=== PATIENT | female | born 2000 | race African-American/Black ===

== ENCOUNTER 2024-01-22 08:00 | Outpatient (CLI) | payer OTHER ==
[2024-01-22 16:46] LABS: BILIRUBIN,URINE NEGATIVE (NEGATIVE); GLUCOSE, URINE (UA) NEGATIVE (NEGATIVE); KETONES,URINE (UA) NEGATIVE (NEGATIVE); LEUKOCYTE ESTERASE, URINE NEGATIVE (NEGATIVE); NITRITE,URINE NEGATIVE (NEGATIVE); OCCULT BLOOD,URINE NEGATIVE (NEGATIVE); PROTEIN,URINE NEGATIVE (NEGATIVE); UROBILINOGEN,URINE 0.2 (NORMAL) E.U./dL (NORMAL)
[2024-01-22 16:54] LABS: CLARITY,URINE CLEAR (CLEAR)
[2024-01-22 17:00] LABS: BACTERIA,URINE Few /HPF (None Seen); RBC,URINE 0-5 /HPF (0-5); SQUAMOUS EPITHELIAL CELL,UR MOD Squamous (<= Few)
== END 2024-01-22 23:59 | disposition home or self-care (01) ==
LOC: LAB.WC 08:00
PROVIDERS: ATTEND Obstetrics & Gynecology
DX: Z34.90 Encounter for supervision of normal pregnancy, unspecified, unspecified trimester (principal)
CPT/HCPCS: 81001; 87077; 87086; 87181

== ENCOUNTER 2024-02-02 07:48 | Outpatient (CLI) | payer OTHER ==
--- NOTE | 2024-02-02 17:28 | Ultrasound Report ---
PROCEDURE: OB 1st Trimester INDICATIONS: POSITIVE TEST OUTSIDE/PRIOR DATING DATA: Last menstrual period (LMP): 11/09/2023. LMP-based estimated date of delivery (MAR): 08/15/2024. First dating scan (date and location): 02/02/2024. Estimated date of delivery (MAR) from first dating scan: 08/26/2024. TECHNIQUE: Real-time scanning was performed of the fetus and maternal pelvic organs, with image documentation. COMPARISON: None. FINDINGS: Intrauterine gestational sac present. Embryo: Temperance-rump length measures 3.74 cm corresponding to 10 weeks 4 days Heart rate: 171 bpm. Other: No perigestational fluid collection. Measurement variability in dating: +/- 4 weeks by LMP, +/- 7 days by mean sac diameter (use before 6 weeks gestation if crown-rump length not able to be measured), +/- 5 days by crown-rump length (6-12 weeks gestation). Maternal organs: Ovaries demonstrate a left corpus luteal cyst IMPRESSION: Single live intrauterine with gestational age 10 weeks 4 days. Recommend follow-up imaging at 20-22 weeks for dates and anatomy. Reviewed by: Zuleima Carter MD on 02/02/2024 5:27 PM PDT Approved by: Zuleima Carter MD on 02/02/2024 5:27 PM PDT Station ID: [id number]
== END 2024-02-02 07:49 | disposition home or self-care (01) ==
LOC: DI 07:48
PROVIDERS: ATTEND Obstetrics & Gynecology
DX: Z34.91 Encounter for supervision of normal pregnancy, unspecified, first trimester (principal)

== ENCOUNTER 2024-02-14 18:00 | Emergency (ER) | payer OTHER ==
[2024-02-14 18:15] VITALS: O2SAT 100
[2024-02-14 19:01] LABS: BASOPHILS % (AUTO) 0.1 %; HCT - HEMATOCRIT 34.9 % (37.0-47.0); HGB - HEMOGLOBIN 11.6 g/dL (12.0-16.0); LYMPHOCYTES # (AUTO) 1.6 10^3/uL (1.5-3.5); LYMPHOCYTES % (AUTO) 17.2 %; MEAN CORPUSCULAR HEMOGLOBIN 29.3 pg (27.0-31.0); MEAN CORPUSCULAR HGB CONC 33.2 g/dL (32.0-36.0); MEAN CORPUSCULAR VOLUME 88.1 fL (81.0-99.0); MEAN PLATELET VOLUME 9.4 fL (7.9-10.8); MONOCYTES # (AUTO) 0.5 10^3/uL (0.0-1.0); MONOCYTES % (AUTO) 5.6 %; NEUTROPHILS % (AUTO) 76.9 %; PLT - PLATELET COUNT 242 10^3/uL (130-450); RED BLOOD COUNT 3.96 10^6/uL (4.20-5.40); WHITE BLOOD COUNT 9.1 x10^3/uL (4.8-10.8)
--- NOTE | 2024-02-14 19:07 | ED Physician Documentation ---
History of Present Illness - Stated complaint Stated Complaint: ESCAMILLA - Chief complaint Chief Complaint: Neuro - History obtained from History obtained from: Patient - History of Present Illness Timing: How many days ago (3) Pain level max: 7 Pain level now: 6 - Additonal information Additional information: Is a 23-year-old female who presents to the emergency department complaining of a headache, generalized. Gradual onset over the past 3 days. Has a history of similar. Took Tylenol this morning without relief. Worse with light and sound, nothing makes it better. No rhinorrhea, cough or congestion. No vomiting. She states she is 14 weeks . No vaginal bleeding or discharge. No abdominal pain. No fevers.No falls. No trauma. Review of Systems Constitutional: denies: Fever, Chills GI: denies: Nausea, Vomiting, Diarrhea Skin: denies: Rash Musculoskeletal: denies: Neck pain, Back pain PD PAST MEDICAL HISTORY - Past Medical History Past Medical History: No Cardiovascular: None Respiratory: None Neuro: None Endocrine/Autoimmune: None GI: None VASCULAR TECH: None : None HEENT: None Psych: None Musculoskeletal: None Derm: None - Past Surgical History Past Surgical History: No - Present Medications Home Medications: Ambulatory Orders Medication Instructions Recorded Confirmed Nitrofurantoin [Macrobid] 100 mg PO BID #10 cap 02/14/24 - Allergies Allergies/Adverse Reactions: Allergies Allergy/AdvReac Type Severity Reaction Status Date / Time No Known Drug Allergies Allergy Verified 02/14/24 18:02 - Social History Does the pt smoke?: No Smoking Status: Never smoker Does the pt drink ETOH?: No Does the pt have substance abuse?: No - Immunizations Immunizations are current?: Yes - POLST Patient has POLST: No PD ED PE NORMAL - Vitals Vital signs reviewed: Yes - General General: Alert and oriented X 3, No acute distress - HEENT HEENT: Atraumatic, PERRL, EOMI, Ears normal, Moist mucous membranes, Pharynx benign - Neck Neck: Supple, no meningeal sign, No bony TTP - Cardiac Cardiac: RRR, Strong equal pulses - Respiratory Respiratory: No respiratory distress, Clear bilaterally - Abdomen Abdomen: Soft, Non tender, Non distended - Back Back: No spinal TTP - Derm Derm: Warm and dry - Extremities Extremities: No edema - Neuro Neuro: Alert and oriented X 3, retoucher photoengraving 2-12 intact, No motor deficit, No sensory deficit, Normal speech Eye Opening: Spontaneous Motor: Obeys Commands Verbal: Oriented GCS Score: 15 - Psych Psych: Normal mood, Normal affect Results - Vitals Vitals: Vital Signs - 24 hr 02/14/24 02/14/24 18:02 21:08 Temperature 36.8 C 36.8 C Heart Rate 76 70 Respiratory 16 16 Rate Blood Pressure 137/75 H 130/72 O2 Saturation 100 100 - Labs Labs: Laboratory Tests 02/14/24 02/14/24 02/14/24 18:52 18:52 19:04 WBC 9.1 RBC 3.96 L Hgb 11.6 L Hct 34.9 L MCV 88.1 MCH 29.3 MCHC 33.2 RDW 13.0 Plt Count 242 MPV 9.4 Neut # (Auto) 7.0 H Lymph # (Auto) 1.6 [place] # (Auto) 0.5 Eos # (Auto) 0.0 Baso # (Auto) 0.0 Absolute Nucleated RBC 0.00 Nucleated RBC % 0.0 Sodium 136 Potassium 3.3 L Chloride 106 Carbon Dioxide 23 Anion Gap 7.0 BUN 8 Creatinine 0.5 L Estimated GFR (MDRD) 185 Glucose 82 Calcium 9.3 Total Bilirubin 0.3 AST 12 ALT 8 L Alkaline Phosphatase 39 L Total Protein 6.2 L Albumin 4.1 Globulin 2.1 Albumin/Globulin Ratio 2.0 Urine Color YELLOW Urine Clarity HAZY Urine pH 6.0 Ur Specific [place] 1.020 Urine Protein NEGATIVE Urine Glucose (UA) NEGATIVE Urine Ketones 15 H Urine Occult Blood NEGATIVE Urine Nitrite NEGATIVE Urine Bilirubin NEGATIVE Urine Urobilinogen 0.2 (NORMAL) Ur Leukocyte Esterase MODERATE H Urine RBC 0-5 Urine WBC 6-10 H Ur Squamous Epith Cells FEW Squamous Urine Bacteria Rare Urine Mucus Few Strands Ur Microscopic Review INDICATED Urine Culture Comments INDICATED PD Medical Decision Making - ED course Complexity details: reviewed results, re-evaluated patient, considered differential, d/w patient ED course: 23-year-old female with her usual migraine headache. She was given a dose of Fioricet, she states that her headache felt "numb, but still felt throbbing". Therefore she was given a dose of Toradol as well. She states that that did improve the pain but was still complaining of throbbing. Therefore was given a small dose of morphine. This fully resolved her symptoms. The headache was not sudden in onset. Normal cerebellar testing. Normal gait. Similar to her usual migraine headache. No red flags. We will have her follow-up with her OB for further care. No focal neurological deficits. No proteinuria. Patient was also incidentally found to have a UTI. She is asymptomatic but given that she is , we will treat with Macrobid. Patient counseled regarding signs and symptoms for which I believe and urgent re-evaluation would be necessary. Patient with good understanding of and agreement to plan and is comfortable going home at this time This document was made in part using voice recognition software. While efforts are made to proofread this document, sound alike and grammatical errors may occur. Departure - Departure Disposition: Home, Self Care Clinical Impression: Migraine Qualifiers: Migraine type: unspecified Status migrainosus presence: without status migrainosus Intractability: not intractable Qualified Code(s): G43.909 - Migraine, unspecified, not intractable, without status migrainosus UTI (urinary tract infection) Qualifiers: Urinary tract infection type: acute cystitis Hematuria presence: without hematuria Qualified Code(s): N30.00 - Acute cystitis without hematuria Condition: Good Instructions: ED Headache Migraine, ED UTI Cystitis Female Follow-Up: your,doctor in 1 week [Other] Prescriptions: Nitrofurantoin [Macrobid] 100 mg PO BID #10 cap Comments: Take all antibiotics until gone. Please return if you worsen. Please follow-up with your OB for further care. Your laboratory testing does not show any acute abnormalities today. You have tested positive for urinary tract infection and as you are , we will treat this. It appears that you had a migraine h eadache today and were given Fioricet and Toradol. Your prescription was sent to [facility] in [place]. Forms: PCP List Discharge Date/Time: 02/14/24 21:08
[2024-02-14 19:12] LABS: BILIRUBIN,URINE NEGATIVE (NEGATIVE); GLUCOSE, URINE (UA) NEGATIVE (NEGATIVE); KETONES,URINE (UA) 15 mg/dL (NEGATIVE); LEUKOCYTE ESTERASE, URINE MODERATE (NEGATIVE); NITRITE,URINE NEGATIVE (NEGATIVE); OCCULT BLOOD,URINE NEGATIVE (NEGATIVE); PROTEIN,URINE NEGATIVE (NEGATIVE); UROBILINOGEN,URINE 0.2 (NORMAL) E.U./dL (NORMAL)
[2024-02-14 19:13] LABS: CLARITY,URINE HAZY (CLEAR)
[2024-02-14 19:18] LABS: ALBUMIN 4.1 g/dL (3.2-5.5); BILIRUBIN,TOTAL 0.3 mg/dL (0.2-1.0); CALCIUM 9.3 mg/dL (8.5-10.3); CREATININE 0.5 mg/dL (0.6-1.3); POTASSIUM 3.3 mmol/L (3.5-4.5); TOTAL PROTEIN 6.2 g/dL (6.4-8.9)
[2024-02-14] MEDS: BUTALB/ACETAM/CAFF 50/325/40MG TABLET PO STA (19:18)
[2024-02-14 19:23] LABS: BACTERIA,URINE Rare /HPF (None Seen); MUCUS,URINE Few Strands; RBC,URINE 0-5 /HPF (0-5); SQUAMOUS EPITHELIAL CELL,UR FEW Squamous (<= Few)
[2024-02-14] MEDS: NITROFURANTOIN MACRO 100 MG CAPSULE PO STA (19:48)
[2024-02-14] MEDS: KETOROLAC 30 MG/ML VIAL IM STA (20:00)
[2024-02-14] MEDS: MORPHINE 2 MG/ML CARPUJECT IM STA (20:37)
[2024-02-14 21:18] VITALS: BP 130/72
== END 2024-02-14 21:08 | disposition home or self-care (01) ==
LOC: ED 18:00
DX: O99.891 Other specified diseases and conditions complicating pregnancy (principal); G43.909 Migraine, unspecified, not intractable, without status migrainosus; O23.12 Infections of bladder in pregnancy, second trimester; Z3A.14 14 weeks gestation of pregnancy
CPT/HCPCS: 36415; 80053; 81001; 85025; 87086; 96372; 99283; 99284; A9270; 81003

== ENCOUNTER 2024-02-18 21:09 | Emergency (ER) | payer OTHER ==
--- NOTE | 2024-02-18 21:40 | ED Physician Documentation ---
PD HPI ABD PAIN - Stated complaint Stated Complaint: ABD PX - Chief complaint Chief Complaint: Abd Pain - History obtained from History obtained from: Patient - Additional information Additional information: G1, P0 female at approximately 14 weeks gestational age presents by private vehicle from home for 3 days of suprapubic abdominal pain. Patient states that she called the nursing triage line who referred her to the emergency department for evaluation. Patient states that pain is worse when she moves. Has confirmed IUP. Patient denies vaginal bleeding, loss of fluids, contractions. Did not call her CHLORINE OPERATOR for this complaint. No medications taken for this complaint prior to arrival Review of Systems Constitutional: denies: Fever, Chills GI: reports: Abdominal Pain. 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 : None HEENT: None Psych: None Musculoskeletal: None Derm: None - Past Surgical History Past Surgical History: No - Present Medications Home Medications: Ambulatory Orders Medication Instructions Recorded Confirmed Nitrofurantoin [Macrobid] 100 mg PO BID #10 cap 02/14/24 - Allergies Allergies/Adverse Reactions: Allergies Allergy/AdvReac Type Severity Reaction Status Date / Time No Known Drug Allergies Allergy Verified 02/18/24 21:12 - Social History Does the pt smoke?: No Smoking Status: Never smoker Does the pt drink ETOH?: No Does the pt have substance abuse?: No - Immunizations Immunizations are current?: Yes - POLST Patient has POLST: No PD ED PE NORMAL - Vitals Vital signs reviewed: Yes - General General: Alert and oriented X 3, No acute distress, Well developed/nourished - Cardiac Cardiac: RRR, Strong equal pulses - Respiratory Respiratory: No respiratory distress, Clear bilaterally - Abdomen Abdomen: Soft, Non distended, Other (Minimal suprapubic tenderness to deep palpation, no rebound or guarding) - Derm Derm: Normal color, Warm and dry, No rash - Extremities Extremities: No deformity, No tenderness to palpate, Normal ROM s pain - Neuro Neuro: Alert and oriented X 3, marine pipefitter 2-12 intact, No motor deficit, Normal speech Results - Vitals Vitals: Vital Signs - 24 hr 02/18/24 02/19/24 21:12 00:08 Temperature 36.8 C Heart Rate 79 78 Respiratory 16 16 Rate Blood Pressure 124/71 134/69 H O2 Saturation 99 100 Oxygen O2 Source Room air - Labs Labs: Laboratory Tests 02/18/24 23:00 Urine Color YELLOW Urine Clarity CLEAR Urine pH 6.5 Ur Specific [place] 1.010 Urine Protein NEGATIVE Urine Glucose (UA) NEGATIVE Urine Ketones NEGATIVE Urine Occult Blood NEGATIVE Urine Nitrite NEGATIVE Urine Bilirubin NEGATIVE Urine Urobilinogen 0.2 (NORMAL) Ur Leukocyte Esterase TRACE H Urine RBC 0-5 Urine WBC 0-3 Ur Squamous Epith Cells MOD Squamous H Urine Bacteria Few Ur Microscopic Review INDICATED Urine Culture Comments NOT INDICATED PD Medical Decision Making - ED course Complexity details: reviewed results, re-evaluated patient, considered differential, d/w patient ED course: Suprapubic abdominal discomfort and cramping in early . No bleeding. Patient already has confirmed IUP. Urinalysis is negative for evidence of infection. heart tones 122. [id number] ultrasound shows movement present. Patient informed of results, recommended that patient take Tylenol as needed for pain and to follow-up with her CHLORINE OPERATOR. Departure - Departure Disposition: 01 Home, Self Care Clinical Impression: Early stage of Abdominal pain Qualifiers: Abdominal location: lower abdomen, unspecified Qualified Code(s): R10.30 - Lower abdominal pain, unspecified Condition: Stable Instructions: ED Abdominal Pain Female Non-Specific Abdominal Pain Comments: Your urinalysis today did not show any signs of infection. The ultrasound we did at bedside showed an active fetus with heart tones present. Please follow- up with your CHLORINE OPERATOR. Take Tylenol as needed for pain and make sure to drink plenty of hydrating fluids. Forms: PCP List Discharge Date/Time: 02/19/24 00:08
[2024-02-18] MEDS: ACETAMINOPHEN 500 MG TABLET PO STA (22:42)
[2024-02-18 23:34] LABS: BILIRUBIN,URINE NEGATIVE (NEGATIVE); GLUCOSE, URINE (UA) NEGATIVE (NEGATIVE); KETONES,URINE (UA) NEGATIVE (NEGATIVE); LEUKOCYTE ESTERASE, URINE TRACE (NEGATIVE); NITRITE,URINE NEGATIVE (NEGATIVE); OCCULT BLOOD,URINE NEGATIVE (NEGATIVE); PH,URINE 6.5 PH (5.0-7.5); PROTEIN,URINE NEGATIVE (NEGATIVE); UROBILINOGEN,URINE 0.2 (NORMAL) E.U./dL (NORMAL)
[2024-02-18 23:35] LABS: CLARITY,URINE CLEAR (CLEAR)
[2024-02-18 23:40] LABS: BACTERIA,URINE Few /HPF (None Seen); RBC,URINE 0-5 /HPF (0-5); SQUAMOUS EPITHELIAL CELL,UR MOD Squamous (<= Few); WBC,URINE 0-3 /HPF (0-5)
[2024-02-19 00:15] VITALS: BP 134/69; O2SAT 100
== END 2024-02-19 00:08 | disposition home or self-care (01) ==
LOC: ED 21:09
DX: O26.891 Other specified pregnancy related conditions, first trimester (principal); R10.30 Lower abdominal pain, unspecified; Z3A.14 14 weeks gestation of pregnancy
CPT/HCPCS: 36415; 81001; 99283; A9270; 81003; 87086

== ENCOUNTER 2024-02-28 08:00 | Outpatient (CLI) | payer OTHER ==
[2024-02-28 16:36] LABS: BILIRUBIN,URINE NEGATIVE (NEGATIVE); GLUCOSE, URINE (UA) NEGATIVE (NEGATIVE); KETONES,URINE (UA) NEGATIVE (NEGATIVE); LEUKOCYTE ESTERASE, URINE NEGATIVE (NEGATIVE); NITRITE,URINE NEGATIVE (NEGATIVE); OCCULT BLOOD,URINE NEGATIVE (NEGATIVE); PH,URINE 7.5 PH (5.0-7.5); PROTEIN,URINE NEGATIVE (NEGATIVE); UROBILINOGEN,URINE 0.2 (NORMAL) E.U./dL (NORMAL)
[2024-02-28 17:24] LABS: RBC,URINE 0-5 /HPF (0-5); SQUAMOUS EPITHELIAL CELL,UR MANY Squamous (<= Few)
[2024-02-28 17:25] LABS: CLARITY,URINE HAZY (CLEAR)
[2024-02-28 17:26] LABS: WBC,URINE 0-3 /HPF (0-5)
[2024-02-28 17:27] LABS: BACTERIA,URINE Few /HPF (None Seen)
[2024-02-28 21:06] LABS: NEISSERIA GONORRHOEAE DNA NEGATIVE (NEGATIVE); TRICHOMONAS VAGINALIS DNA NEGATIVE (NEGATIVE)
[2024-02-28 21:07] LABS: CHLAMYDIA TRACHOMATIS DNA POSITIVE (NEGATIVE)
== END 2024-02-28 23:59 | disposition home or self-care (01) ==
LOC: LAB.WC 08:00
PROVIDERS: ATTEND Obstetrics & Gynecology
DX: O99.891 Other specified diseases and conditions complicating pregnancy (principal); R30.0 Dysuria; Z36.89 Encounter for other specified antenatal screening
CPT/HCPCS: 81001; 87086; 87491; 87591; 87661

== ENCOUNTER 2024-03-03 13:44 | Emergency (ER) | payer OTHER ==
[2024-03-03 14:23] LABS: BILIRUBIN,URINE NEGATIVE (NEGATIVE); GLUCOSE, URINE (UA) NEGATIVE (NEGATIVE); KETONES,URINE (UA) NEGATIVE (NEGATIVE); LEUKOCYTE ESTERASE, URINE MODERATE (NEGATIVE); NITRITE,URINE NEGATIVE (NEGATIVE); OCCULT BLOOD,URINE NEGATIVE (NEGATIVE); PROTEIN,URINE NEGATIVE (NEGATIVE); UROBILINOGEN,URINE 0.2 (NORMAL) E.U./dL (NORMAL)
[2024-03-03 14:26] LABS: CLARITY,URINE CLOUDY (CLEAR); HCG UR QUAL POSITIVE
[2024-03-03 14:31] LABS: BACTERIA,URINE Moderate /HPF (None Seen); RBC,URINE 0-5 /HPF (0-5); SQUAMOUS EPITHELIAL CELL,UR MANY Squamous (<= Few)
[2024-03-03 14:34] LABS: BASOPHILS % (AUTO) 0.3 %; EOSINOPHILS % (AUTO) 0.1 %; HCT - HEMATOCRIT 37.5 % (37.0-47.0); HGB - HEMOGLOBIN 12.6 g/dL (12.0-16.0); LYMPHOCYTES # (AUTO) 1.9 10^3/uL (1.5-3.5); LYMPHOCYTES % (AUTO) 18.8 %; MEAN CORPUSCULAR HEMOGLOBIN 29.5 pg (27.0-31.0); MEAN CORPUSCULAR HGB CONC 33.6 g/dL (32.0-36.0); MEAN CORPUSCULAR VOLUME 87.8 fL (81.0-99.0); MEAN PLATELET VOLUME 9.5 fL (7.9-10.8); MONOCYTES # (AUTO) 0.7 10^3/uL (0.0-1.0); MONOCYTES % (AUTO) 6.5 %; NEUTROPHILS # (AUTO) 7.6 10^3/uL (1.5-6.6); NEUTROPHILS % (AUTO) 73.9 %; PLT - PLATELET COUNT 285 10^3/uL (130-450); RED BLOOD COUNT 4.27 10^6/uL (4.20-5.40); RED CELL DISTRIBUTION WIDTH 12.9 % (12.0-15.0); WHITE BLOOD COUNT 10.3 x10^3/uL (4.8-10.8)
[2024-03-03 14:47] LABS: ALBUMIN 4.1 g/dL (3.2-5.5); ALBUMIN/GLOBULIN RATIO 1.5 (1.0-2.2); BILIRUBIN,TOTAL 0.3 mg/dL (0.2-1.0); CALCIUM 10.3 mg/dL (8.5-10.3); CREATININE 0.5 mg/dL (0.6-1.3); POTASSIUM 3.7 mmol/L (3.5-4.5); TOTAL PROTEIN 6.9 g/dL (6.4-8.9)
[2024-03-03] MEDS: ACETAMINOPHEN 325 MG TABLET PO STA (16:02)
[2024-03-03] MEDS: SODIUM CHLORIDE 0.9% 1,000 ML IV STA (16:02)
[2024-03-03] MEDS: ONDANSETRON 4 MG/2 ML VIAL IVP STA (16:02)
--- NOTE | 2024-03-03 17:35 | ED Physician Documentation ---
History of Present Illness - Stated complaint Stated Complaint: ESCAMILLA,N/V,DIZZINESS - Chief complaint Chief Complaint: General - History obtained from History obtained from: Patient - Additonal information Additional information: Patient is a 23-year-old female G2, P0 presenting for evaluation of nausea and vomiting that started since Saturday. She is approximately 17 weeks . She reports she has been able to keep down water but otherwise no other p.o. intake. Denies diarrhea. No abdominal pain or cramping. No fevers. Does report a mild frontal headache which she has been using acetaminophen for. She does have a history of 1 prior miscarriage but denies other concerns with this . Denies eating anything out of the ordinary recently, known sick contacts, recent travel. Review of Systems Constitutional: denies: Fever Cardiac: denies: Chest pain / pressure Respiratory: denies: Dyspnea GI: reports: Nausea, Vomiting. denies: Abdominal Pain, Diarrhea : denies: Dysuria PD PAST MEDICAL HISTORY - Past Medical History Past Medical History: Yes Cardiovascular: None Respiratory: None Neuro: None Endocrine/Autoimmune: None GI: None LOG RIDER: None : None HEENT: None Psych: None Musculoskeletal: None Derm: None - Past Surgical History Past Surgical History: No - Present Medications Home Medications: Ambulatory Orders Medication Instructions Recorded Confirmed Ondansetron Odt [Zofran] 4 mg TL Q6H PRN #10 tablet 03/03/24 Pnv 119/Iron Fum/Folic Acid 1 each PO DAILY 03/03/24 03/03/24 [ 19 Tablet] - Allergies Allergies/Adverse Reactions: Allergies Allergy/AdvReac Type Severity Reaction Status Date / Time No Known Drug Allergies Allergy Verified 03/03/24 14:01 - Social History Does the pt smoke?: No Smoking Status: Never smoker Does the pt drink ETOH?: No Does the pt have substance abuse?: No - Immunizations Immunizations are current?: Yes - POLST Patient has POLST: No PD ED PE NORMAL - General General: Alert and oriented X 3, No acute distress, Well developed/nourished - HEENT HEENT: Atraumatic - Neck Neck: Supple, no meningeal sign - Cardiac Cardiac: RRR, Strong equal pulses - Respiratory Respiratory: No respiratory distress, Clear bilaterally - Abdomen Abdomen: Normal bowel sounds, Soft, Non tender, Non distended - Derm Derm: Warm and dry - Neuro Neuro: Normal speech Results - Vitals Vitals: Vital Signs - 24 hr 03/03/24 03/03/24 03/03/24 14:02 16:08 18:00 Temperature 36.8 C Heart Rate 82 65 70 Respiratory 18 14 16 Rate Blood Pressure 132/68 H 116/79 114/78 O2 Saturation 98 98 100 Oxygen O2 Source Room air - Labs Labs: Laboratory Tests 03/03/24 03/03/24 03/03/24 14:19 14:27 14:27 WBC 10.3 RBC 4.27 Hgb 12.6 Hct 37.5 MCV 87.8 MCH 29.5 MCHC 33.6 RDW 12.9 Plt Count 285 MPV 9.5 Neut # (Auto) 7.6 H Lymph # (Auto) 1.9 [place] # (Auto) 0.7 Eos # (Auto) 0.0 Baso # (Auto) 0.0 Absolute Nucleated RBC 0.00 Nucleated RBC % 0.0 Sodium 135 Potassium 3.7 Chloride 106 Carbon Dioxide 23 Anion Gap 6.0 BUN 9 Creatinine 0.5 L Estimated GFR (MDRD) 185 Glucose 89 Calcium 10.3 Total Bilirubin 0.3 AST 13 ALT 8 L Alkaline Phosphatase 47 Total Protein 6.9 Albumin 4.1 Globulin 2.8 Albumin/Globulin Ratio 1.5 Lipase 35 Urine Color YELLOW Urine Clarity CLOUDY Urine pH 6.0 Ur Specific [place] >=1.030 H Urine Protein NEGATIVE Urine Glucose (UA) NEGATIVE Urine Ketones NEGATIVE Urine Occult Blood NEGATIVE Urine Nitrite NEGATIVE Urine Bilirubin NEGATIVE Urine Urobilinogen 0.2 (NORMAL) Ur Leukocyte Esterase MODERATE H Urine RBC 0-5 Urine WBC 6-10 H Ur Squamous Epith Cells MANY Squamous H Urine Bacteria Moderate H Ur Microscopic Review INDICATED Urine Culture Comments NOT INDICATED Urine HCG, Qual POSITIVE PD Medical Decision Making - ED course Complexity details: reviewed results, d/w patient ED course: Pt with N/V, headache, and is 17 weeks . VSS. Abdominal exam benign. No vaginal bleeding/cramping/discharge. Normal neuro exam and headache seems mild and frontal. No concerning features to suggest SAH, dural sinus thrombosis. CBC, chemistries reviewed and without significant findings. Pt denies UTI symptoms. UA with leukocytes and moderate bacteria but many squamous cells. Will add culture as she is and would treat asymptomatic bacteriuria if culture grows organism. Pt feeling better after IV fluids and zofran. No vomiting here. Counseled on continued supportive care and concerning symptoms to return for. Departure - Departure Disposition: 01 Home, Self Care Clinical Impression: Nausea/vomiting in Condition: Stable Instructions: ED Nausea Vomiting Prescriptions: Ondansetron Odt [Zofran] 4 mg TL Q6H PRN #10 tablet PRN Reason: Nausea / Vomiting Comments: I have sent a prescription for an antinausea medication to [facility] in [place]. Please continue to stay hydrated and use acetaminophen as needed for pain. Return to the ER with any worsening. Continue to have close follow-up with your OB. Forms: PCP List Discharge Date/Time: 03/03/24 18:17
[2024-03-03 18:05] VITALS: BP 114/78; O2SAT 100
== END 2024-03-03 18:17 | disposition home or self-care (01) ==
LOC: ED 13:44
DX: O21.9 Vomiting of pregnancy, unspecified (principal); O28.8 Other abnormal findings on antenatal screening of mother; Z3A.17 17 weeks gestation of pregnancy
CPT/HCPCS: 36415; 80053; 81001; 81025; 83690; 85025; 87077; 87086; 96374; 99283; A9270; 81003

== ENCOUNTER 2024-04-14 18:17 | Outpatient (CLI) | payer OTHER ==
--- NOTE | 2024-04-15 18:01 | Ultrasound Report ---
PROCEDURE: OB Anatomy Scan INDICATIONS: SUPERVISION OF OUTSIDE/PRIOR DATING DATA: Last menstrual period (LMP): 11/09/2023. LMP-based estimated date of delivery (MAR): 08/15/2024. First dating scan (date and location): 02/02/2024. Estimated date of delivery (MAR) from first dating scan: 08/26/2024. The below data below was generated using the working MAR of 08/26/2024 TECHNIQUE: Ultrasound of the gravid uterus was performed and recorded. COMPARISON: 02/02/2024 FINDINGS: General: A single live intrauterine gestation is present. Presentation: Variable Placenta: Placental position is anterior without previa. Marginal cord insertion is 1.8 cm from the superior edge of the placenta Amniotic fluid index: 16.7 cm, 71.3 percentile for gestational age. heart rate: 138 beats per minute. Maternal cervical canal: 4.5 cm long; normal length is 2.5 cm or more. biometrics: Biparietal diameter: 5.36 cm, 22 week 2 day, 93.1 percentile Head circumference: 20.18 cm, 22 week 2 day, 92.4 percentile Abdominal circumference: 16.88 cm, 21 week 6 day, 35.9 percentile Femur length: 3.37 cm, 20 week 4 day, 31.1 percentile Estimated gestational age by working dates: 20 week 6 day Composite gestational age by current ultrasound: 21 week 4 day Estimated weight and percentile: 423.1 g, 75.8 percentile Measurement variability in biometric dating: +/- 10 days from 12-20 weeks gestation, +/- 2 weeks from 20-30 weeks gestation, +/- 3 weeks at 30 weeks gestation or more. Anatomic survey: Neuro: Ventricles are non-dilated at less than 10 mm. Cisterna magna is normal at 3-11 mm. Cerebel lum is normal in size and morphology. Nuchal skin fold: Normal at less than 6 mm between 14-20 weeks gestational age. Face: Facial profile and nose and lips not well seen due to patient positioning Spine: No evidence for spina bifida. Heart: Not well seen due to patient positioning Diaphragm: Diaphragm is intact. Stomach: Left-sided stomach is present. Kidneys: No hydronephrosis. Normal is less than 5 mm in 2nd trimester, less than 7 mm in 3rd trimester. Cord: 3-vessel cord has orthotopic insertion. Bladder: Normal in size. Extremities: All 4 extremities identified. Other: Not applicable. IMPRESSION: Single live intrauterine consistent with 21 week 4 day gestation by current ultrasound facial profile, nose and lips are, cardiac views are not well seen due to patient positioning. Attention on follow-up. Marginal cord insertion on the placenta is 1.8 cm from the superior placental edge. Reviewed by: Feliciano Sanches MD on 04/15/2024 5:00 PM FERNANDO Approved by: Feliciano Sanches MD on 04/15/2024 5:00 PM FERNANDO Station ID: [id number]
== END 2024-04-14 18:18 | disposition home or self-care (01) ==
LOC: DI 18:17
PROVIDERS: ATTEND Obstetrics & Gynecology
DX: Z34.92 Encounter for supervision of normal pregnancy, unspecified, second trimester (principal); Z36.89 Encounter for other specified antenatal screening